=== PATIENT | male | born 1945 | race African-American/Black ===

== ENCOUNTER 2021-08-26 13:47 | Emergency (ER) | payer SELFPAY ==
[~2021-08-26] VITALS: Ht 167.6 cm; Wt 52.2 kg
--- NOTE | 2021-08-26 13:54 | NUR ---
TO ER BED 13, [facility] C/O COLD, AAOX3, BREATHING EVEN AND NON LABORED, CONNECTED TO MONITOR
--- NOTE | 2021-08-26 15:37 | NUR ---
PUBLIC RELATIONS CONSULTANT NATHALIA AT BEDSIDE
--- NOTE | 2021-08-26 16:00 | NUR ---
SS Consult: SS Consult requested for homelessness. The pt. is a 76-year-old male patient currently in ED with C/O "being cold". Per EMR, the pt. stated he has been residing an encampment. Upon SS consult, the pt. is A&O x 4 and makes appropriate eye contact. The pt. appears disheveled, mal odorous and presents with a euthymic mood and affect. The pt. presents with a normal thought process and was cooperative with SW. JIM explored pt.'s living situation. Per the pt., he has been experiencing homelessness "for quite a while". Pt. states he resides in an encampment. JIM explored pt.'s drug & ETOH use. Pt. denies using drugs or alcohol. JIM explored pt.'s mental health Hx. Per the pt., she has never been diagnosed with a mental illness and is not taking any psychotropic medications. Pt. denies current SI/HI and denies hallucinations. Pt. states he receives SSI & SSDI. Per pt. he uses wheelchair to ambulate. JIM explored pt.'s support system. Pt. states he has no support system or family. Plan: Pt. signed homeless waiver & it was placed in the pt.'s chart. JIM provided homeless resources to pt. and he accepted them. JIM provided bus route to [facility] located at [address] AMEAddress:[address] [place] [address]; . Pt. refused TAP card stating buses are free. Pt. is agreeable to care home placement. Pt. was provided with food and has appropriate clothing. Year-round shelters: [facility] [place] [address] [place] [address] ; [facility] [place] [address] [place] [address]; [facility] [id number] [facility] [address] Winter Shelters: SPA 2 | [facility]: Jose [facility] [place] Address: Confidential (call for location ) Population Served: Coed # of Beds: 57 SPA 4 | [facility] Provider: [facility] Address: [address] [place] [address], [address] # of Beds: 49 Population Served: Coed SPA 6 | [facility] Provider: [facility] Last Address: [address] [place], [address] # of Beds: 49 Population Served: Coed [facility] Provider: Clemente DE LA PAZ Address: [address] [facility] [address] # of Beds: 20 Population Served: Women GREG Facility Provider: Home at Last Address: [address] [facility] [address] # of Beds: 30 Population Served: Women SPA 8 | [facility] Provider: Mauro aguila Manjula Address: [address] [facility] [address] # of Beds: 65 Population Served: Coed Hygiene: [facility]: [address] [facility] ; [facility] [address] [facility] ; [facility] [address] [facility] . Food Resources: [place] [facility]- [address] [facility]; Meet Each Need with Dignity ([facility]) [address] [facility]; [facility] [address] [facility]; [facility] [address] [facility]. Mental Health resources provided: [facility] [address] [place] [address] ; [facility] [address] [facility] [address], [place] [address] ; [address] [facility] [address] [place] [address] ; [facility] [place] [address] Healthcare Clinics: [facility] [address] [facility], [address] [place]. [place] ; [facility] [address] [facility] [address] [place] [address]; [facility] [address] [facility] [place] [phone] Counseling--Outpatient [facility] [address] [facility], [place] [address] (Specializes in in-depth psychotherapy for emotional distress: anxiety, depression, interpersonal conflicts, life transitions, childhood abuse) [facility] [address] [place] [address] (Assist with solving problem marital difficulties, separation & divorce, aging parents, & grief, chronic & terminal illness) [facility] [address] [place] [address] (Deal with loss & grief, anxiety, marital difficulties) Homebound/Mental Health Services [address] [facility], [address] [place] [address] (Provide in-home mental services to people who are incapable of leaving their homes) [facility] Elderly Senior Service/Resource Center [address] [address] [facility] [place] [address] [facility] [address] [facility] [place] [address] PSYCHIATRIC OUTPATIENT SERVICES [facility] Partial Hospitalization and Intensive Outpatient Program (Managed Care and [place] Only)[address] [facility] [phone] [facility] Partial Hospitalization and Outpatient [id number] [facility] [address] [place], [place] [phone] [facility] Center Hno[address] [facility] [address] [place], [place] [phone] [facility] Partial Hospitalization and Outpatient Febuvls87679 [facility] Kaylie [phone] Substance Abuse resources provided included: [facility] Substance Abuse Self-Helpline ([facility]) ; [facility] [address] [facility]. [place] [address] ; [facility] [address] [facility] [address] ; [facility] [address] [facility] [address] ; [facility] The [facility] [address] [facility] [phone] ; [facility] [address] [facility] [address] ; [facility] [address] [facility] [phone] ; [facility] Substance Abuse Helpline([facility] ; [facility] ; [facility] Caret; [facility] [place]; [facility] [place]; [facility] [place]; [facility] [place]; [facility] [place]; Alcoholics Anonymous -SFV; Ck-Salf-Mriyjzl ; Marijuana Anonymous -[facility]V; Narcotics Anonymous [email or web address];
[2021-08-26 16:24] VITALS: BP 124/71
== END 2021-08-26 16:24 | disposition home or self-care (01) ==
LOC: ER 13:51
DX: R52 Pain, unspecified (principal); Z59.00 Homelessness unspecified; Z53.29 Procedure and treatment not carried out because of patient's decision for other reasons